=== PATIENT | female | born 1955 | race Caucasian/White ===

== ENCOUNTER 2022-03-06 13:55 | Inpatient (IN) | payer OTHER ==
[~2022-03-06] VITALS: Ht 152.4 cm; Wt 67.0 kg
[2022-03-06] MEDS ORDERED: SUCR1SUS5 PO (15:39)
[2022-03-06] MEDS ORDERED: PANT40T PO (15:39)
[2022-03-06] MEDS ORDERED: PROM25TA5 PO (15:39)
[2022-03-06] MEDS ORDERED: ONDA-144 PO (15:39)
[2022-03-06] MEDS ORDERED: NITROGLYCERIN 0.4 MG SL TAB SL PRN (15:45)
[2022-03-06] MEDS ORDERED: MORPHINE SULFATE INJ 2 MG/ml SYRG IV PRN (15:45)
[2022-03-06] MEDS: ONDANSETRON HCL 4 MG/2 ML VIAL IV PRN ×2 (15:59→20:54)
[2022-03-06] MEDS ORDERED: ASPirin 81 mg TAB PO ONE (16:00)
[2022-03-06] MEDS ORDERED: ENOXAPARIN SOD 100 MG/1 ML SYRINGE SC ONE (16:00)
[2022-03-06] MEDS ORDERED: ATORVASTATIN 20 MG TAB PO ONE (16:15)
[2022-03-06 16:41] LABS: INR 1.13 (0.9-1.15)
[2022-03-06 16:42] VITALS: BP 162/87
[2022-03-06] MEDS: SODIUM CHLORIDE 0.9% 1,000 ML IV SCH ×2 (16:45→20:28)
[2022-03-06 16:58] LABS: Total Protein 7.2 g/dL (6.4-8.2)
[2022-03-06] MEDS ORDERED: hydrALAZINE HCL 20 MG/ML VL IV PRN (17:00)
[2022-03-06] MEDS ORDERED: cefTRIAXone 1GM/50ML D5W 50 ML IV ONE (17:00)
[2022-03-06 17:01] LABS: Albumin 4.2 g/dL (3.4-5.0); BUN/Creatinine Ratio 10.9; Bilirubin, Total 1.5 mg/dL (0.2-1.0); Calcium 9.5 mg/dL (8.5-10.1); Magnesium 1.5 mg/dL (1.6-2.6); Potassium 3.3 mmol/L (3.5-5.1)
[2022-03-06] MEDS ORDERED: CLOPIDOGREL 300 MG TAB PO ONE (17:15)
[2022-03-06] MEDS ORDERED: HEPARIN 1,000 UNITS/ml 1ML VIAL IV ONE (17:15)
[2022-03-06] MEDS ORDERED: HEPARIN SODIUM (PORCINE) 5000 UNITS/ML 1ML VIAL ONE (17:26)
[2022-03-06] MEDS ORDERED: CLOPIDOGREL BISULFATE 75 MG TAB ONE (17:37)
[2022-03-06] MEDS ORDERED: LIDOCAINE 2%HCL (LOCAL ANESTH.) INJ 20ML MDV ONE (17:45)
[2022-03-06] MEDS ORDERED: HEPARIN IN NS 1000Units/500mL 1,500 ML ONE (17:45)
[2022-03-06] MEDS ORDERED: IOHEXOL 350 MG/ML 100ML IJ ONE (17:45)
[2022-03-06] MEDS ORDERED: IODIXANOL 320MG/ML 100ML BTL IV ONE (17:45)
[2022-03-06] MEDS ORDERED: ANGIOMAX 250 MG VIAL IV ONE (18:02)
[2022-03-06] MEDS ORDERED: SODIUM CHL 0.9% 0 ML ONE (18:03)
[2022-03-06] MEDS ORDERED: VERAPAMIL 2.5MG/ML INJ 2ML VIAL IV ONE (18:03)
[2022-03-06] MEDS ORDERED: fentaNYL CITRATE 100 MCG/2 ML VL ONE (18:03)
[2022-03-06] MEDS ORDERED: MIDAZOLAM HCL 2MG/2ML 2ml VIAL (1mg/ml) ONE (18:03)
[2022-03-06 18:07] LABS: Basophils # (auto) 0 10 ^3/uL (0-0.2); Basophils % (auto) 0.3 % (0.0-2.0); Eosinophils # (auto) 0 10 ^3/uL (0-0.8); Hemoglobin 14.1 g/dL (12.2-16.2); Lymphocytes # (auto) 1.1 10 ^3/uL (0.4-5.4); Mean Corpuscular Hemoglobin 30.2 pg (28.0-32.0); Mean Corpuscular Hgb Conc. 32.9 g/dL (32.0-36.0); Mean Corpuscular Volume 91.9 fL (80.0-100.0); Monocytes # (auto) 0.5 10 ^3/uL (0-1.3); Monocytes % (auto) 3.7 % (0.0-12.0); Neutrophils # (auto) 11.5 10 ^3/uL (1.6-8.6); Red Blood Cells 4.68 10^6/uL (4.0-5.20); Red Cell Distribution Width 13.8 % (11.8-14.3); White Blood Cell 13.1 10^3/uL (4.4-10.8)
[2022-03-06] MEDS: POTASSIUM CHL 20MEQ/100ML 100 ML IV SCH (20:54)
[2022-03-06] MEDS: SACUBITRIL-VALSARTAN 24mg/26mg TAB PO SCH (21:03)
[2022-03-06] MEDS: ATORVASTATIN 20 MG TAB PO SCH (21:04)
[2022-03-06] MEDS: CARVEDILOL 3.125 MG TAB PO SCH (21:04)
[2022-03-06 21:47] VITALS: BP 128/72
[2022-03-07] MEDS: ONDANSETRON HCL 4 MG/2 ML VIAL IV PRN ×3 (00:27→14:05)
[2022-03-07] MEDS: POTASSIUM CHL 20MEQ/100ML 100 ML IV SCH (00:27)
[2022-03-07] MEDS: METOCLOPRAMIDE HCL 5MG/ml INJ 2ml VIAL IV PRN ×3 (01:26→19:50)
[2022-03-07 04:44] VITALS: BP 129/85
[2022-03-07 04:53] LABS: Urine Bacteria NONE SEEN /hpf (None Seen); Urine Blood 1+ /uL (Negative); Urine Mucus FEW (None Seen); Urine Specific Gravity 1.025 (1.001-1.035); Urine WBC 1 /hpf (0 - 5)
[2022-03-07 05:03] LABS: Alcohol, Urine < 3.0 mg/dL (0-10); Amphetamine Screen, Urine NEGATIVE (NEGATIVE); Barbiturate Scree,Urine NEGATIVE (NEGATIVE); Benzodiazephine Screen, Urine POSITIVE (NEGATIVE); Cannabinoid Screen, Urine POSITIVE (NEGATIVE); Cocaine Screen, Urine NEGATIVE (NEGATIVE); Opiate Scree,Urine NEGATIVE (NEGATIVE); Phencyclidine Screen, Urine NEGATIVE (NEGATIVE)
[2022-03-07] MEDS: SODIUM CHLORIDE 0.9% 1,000 ML IV SCH (05:46)
[2022-03-07 08:15] LABS: Basophils # (auto) 0.1 10 ^3/uL (0-0.2); Basophils % (auto) 0.3 % (0.0-2.0); Eosinophils # (auto) 0 10 ^3/uL (0-0.8); Hematocrit 44.5 % (36.0-46.0); Hemoglobin 14.7 g/dL (12.2-16.2); Lymphocytes # (auto) 1.7 10 ^3/uL (0.4-5.4); Lymphocytes % (auto) 8.5 % (10.0-50.0); Mean Corpuscular Hemoglobin 29.6 pg (28.0-32.0); Mean Corpuscular Volume 89.7 fL (80.0-100.0); Monocytes # (auto) 0.6 10 ^3/uL (0-1.3); Monocytes % (auto) 3.2 % (0.0-12.0); Neutrophils # (auto) 17.8 10 ^3/uL (1.6-8.6); Nucleated Red Blood Cells % 0.1 %; Red Blood Cells 4.96 10^6/uL (4.0-5.20); White Blood Cell 20.2 10^3/uL (4.4-10.8)
[2022-03-07 08:42] LABS: BUN/Creatinine Ratio 20.5; Calcium 8.7 mg/dL (8.5-10.1); Potassium 3.8 mmol/L (3.5-5.1)
[2022-03-07 09:00] VITALS: BP 145/71
[2022-03-07] MEDS: CARVEDILOL 3.125 MG TAB PO SCH ×2 (09:01→22:07)
[2022-03-07] MEDS: SACUBITRIL-VALSARTAN 24mg/26mg TAB PO SCH ×2 (09:01→22:07)
[2022-03-07] MEDS: cefTRIAXone 1GM/50ML D5W 50 ML IV SCH ×2 (09:05→10:55)
[2022-03-07] MEDS ORDERED: SODIUM CHLORIDE 0.9% 1,000 ML IV SCH (09:45)
[2022-03-07] MEDS ORDERED: PANTOPRAZOLE 40 MG/10 ML VIAL INJ IV SCH (10:00)
[2022-03-07 12:58] VITALS: BP 121/81
[2022-03-07] MEDS ORDERED: FUROSEMIDE 40 MG/4 ML VIAL IV ONE (13:45)
[2022-03-07] MEDS ORDERED: MAGNESIUM SULFATE 1GM/100ML 100 ML IV ONE (13:45)
[2022-03-07 14:22] LABS: Basophils # (auto) 0.1 10 ^3/uL (0-0.2); Basophils % (auto) 0.3 % (0.0-2.0); Eosinophils # (auto) 0 10 ^3/uL (0-0.8); Nucleated Red Blood Cells % 0.1 %
[2022-03-07 14:24] LABS: Hematocrit 45.4 % (36.0-46.0); Hemoglobin 15.1 g/dL (12.2-16.2); Lymphocytes % (auto) 9.5 % (10.0-50.0); Mean Corpuscular Hemoglobin 30.5 pg (28.0-32.0); Mean Corpuscular Hgb Conc. 33.2 g/dL (32.0-36.0); Mean Corpuscular Volume 91.9 fL (80.0-100.0); Monocytes # (auto) 0.9 10 ^3/uL (0-1.3); Monocytes % (auto) 4.1 % (0.0-12.0); Neutrophils # (auto) 18.5 10 ^3/uL (1.6-8.6); Neutrophils % (auto) 86.1 % (37.0-80.0); Red Blood Cells 4.94 10^6/uL (4.0-5.20); Red Cell Distribution Width 13.8 % (11.8-14.3); White Blood Cell 21.5 10^3/uL (4.4-10.8)
[2022-03-07 14:53] LABS: Albumin 3.3 g/dL (3.4-5.0); Calcium 8.7 mg/dL (8.5-10.1); Magnesium 1.8 mg/dL (1.6-2.6); Potassium 3.3 mmol/L (3.5-5.1)
[2022-03-07 14:56] LABS: BUN/Creatinine Ratio 15.4; Total Protein 6.8 g/dL (6.4-8.2)
[2022-03-07 17:00] VITALS: BP 111/69
[2022-03-07] MEDS: FUROSEMIDE 40 MG/4 ML VIAL IV SCH (17:45)
[2022-03-07] MEDS: SUCRALFATE 1 GM TAB PO SCH ×2 (17:45→22:06)
[2022-03-07 22:00] VITALS: BP 104/53
[2022-03-07] MEDS ORDERED: ATORVASTATIN 20 MG TAB PO SCH (22:00)
[2022-03-07] MEDS: ATORVASTATIN 20 MG TAB PO SCH (22:06)
[2022-03-07] MEDS: PANTOPRAZOLE 40 MG/10 ML VIAL INJ IV SCH (22:06)
[2022-03-07] MEDS: ALPRAZolam 0.5 MG TAB PO PRN (22:07)
[2022-03-08 05:00] VITALS: BP 126/77
[2022-03-08] MEDS: FUROSEMIDE 40 MG/4 ML VIAL IV SCH ×2 (06:10→18:02)
[2022-03-08] MEDS: SUCRALFATE 1 GM TAB PO SCH ×4 (06:11→21:32)
[2022-03-08 06:19] LABS: Basophils # (auto) 0.1 10 ^3/uL (0-0.2); Basophils % (auto) 0.5 % (0.0-2.0); Eosinophils # (auto) 0 10 ^3/uL (0-0.8); Eosinophils % (auto) 0.1 % (0.0-7.0); Hematocrit 42.3 % (36.0-46.0); Hemoglobin 14.4 g/dL (12.2-16.2); Lymphocytes # (auto) 2.1 10 ^3/uL (0.4-5.4); Lymphocytes % (auto) 12.9 % (10.0-50.0); Mean Corpuscular Hemoglobin 30.3 pg (28.0-32.0); Mean Corpuscular Hgb Conc. 34.1 g/dL (32.0-36.0); Mean Corpuscular Volume 88.9 fL (80.0-100.0); Monocytes # (auto) 0.9 10 ^3/uL (0-1.3); Monocytes % (auto) 5.3 % (0.0-12.0); Neutrophils # (auto) 13.5 10 ^3/uL (1.6-8.6); Neutrophils % (auto) 81.2 % (37.0-80.0); Red Blood Cells 4.75 10^6/uL (4.0-5.20); Red Cell Distribution Width 13.7 % (11.8-14.3); White Blood Cell 16.6 10^3/uL (4.4-10.8)
[2022-03-08 06:35] LABS: BUN/Creatinine Ratio 19.1; Calcium 8.4 mg/dL (8.5-10.1)
[2022-03-08 06:39] LABS: Potassium 2.8 mmol/L (3.5-5.1)
[2022-03-08 09:00] VITALS: BP 95/40
[2022-03-08] MEDS ORDERED: POTASSIUM EFFERVESENT TAB 25 MEQ PO ONE (09:15)
[2022-03-08] MEDS: SACUBITRIL-VALSARTAN 24mg/26mg TAB PO SCH ×2 (10:00→21:32)
[2022-03-08] MEDS: CARVEDILOL 3.125 MG TAB PO SCH ×2 (10:00→21:32)
[2022-03-08] MEDS: DAPAGLIFLOZIN 5 MG TAB PO SCH (10:35)
[2022-03-08] MEDS: PANTOPRAZOLE 40 MG/10 ML VIAL INJ IV SCH ×2 (10:36→21:31)
[2022-03-08] MEDS: cefTRIAXone 1GM/50ML D5W 50 ML IV SCH (10:36)
[2022-03-08] MEDS ORDERED: POTASSIUM CHL 20 Meq TABLET PO ONE (10:45)
[2022-03-08 12:34] VITALS: BP 124/66
[2022-03-08 14:16] LABS: Magnesium 1.8 mg/dL (1.6-2.6); Potassium 3.3 mmol/L (3.5-5.1)
[2022-03-08 17:00] VITALS: BP 125/71
[2022-03-08] MEDS: ALPRAZolam 0.5 MG TAB PO PRN (21:33)
[2022-03-08] MEDS: ATORVASTATIN 20 MG TAB PO SCH (21:33)
[2022-03-08 22:00] VITALS: BP 123/80
[2022-03-08] MEDS: ONDANSETRON HCL 4 MG/2 ML VIAL IV PRN (22:16)
[2022-03-09 05:00] VITALS: BP 100/55
[2022-03-09 05:52] LABS: Basophils # (auto) 0 10 ^3/uL (0-0.2); Basophils % (auto) 0.2 % (0.0-2.0); Eosinophils # (auto) 0 10 ^3/uL (0-0.8); Eosinophils % (auto) 0.2 % (0.0-7.0); Hematocrit 41.7 % (36.0-46.0); Hemoglobin 14.1 g/dL (12.2-16.2); Lymphocytes # (auto) 2.1 10 ^3/uL (0.4-5.4); Lymphocytes % (auto) 17.5 % (10.0-50.0); Mean Corpuscular Hemoglobin 30.5 pg (28.0-32.0); Mean Corpuscular Hgb Conc. 33.8 g/dL (32.0-36.0); Monocytes # (auto) 0.8 10 ^3/uL (0-1.3); Monocytes % (auto) 6.8 % (0.0-12.0); Neutrophils # (auto) 9.1 10 ^3/uL (1.6-8.6); Neutrophils % (auto) 75.3 % (37.0-80.0); Red Blood Cells 4.64 10^6/uL (4.0-5.20); Red Cell Distribution Width 13.5 % (11.8-14.3); White Blood Cell 12.1 10^3/uL (4.4-10.8)
[2022-03-09] MEDS: FUROSEMIDE 40 MG/4 ML VIAL IV SCH (05:53)
[2022-03-09] MEDS: ONDANSETRON HCL 4 MG/2 ML VIAL IV PRN ×2 (05:53→09:50)
[2022-03-09] MEDS: SUCRALFATE 1 GM TAB PO SCH ×2 (05:54→12:55)
[2022-03-09 06:05] LABS: BUN/Creatinine Ratio 26.1; Calcium 8.7 mg/dL (8.5-10.1)
[2022-03-09 07:02] LABS: Potassium 2.9 mmol/L (3.5-5.1)
[2022-03-09] MEDS ORDERED: POTASSIUM EFFERVESENT TAB 25 MEQ PO ONE (07:45)
[2022-03-09] MEDS ORDERED: POTASSIUM CHL 20 Meq TABLET PO ONE (08:30)
[2022-03-09] MEDS ORDERED: MAGNESIUM OXIDE 400 MG TAB PO ONE (08:30)
[2022-03-09 08:55] VITALS: BP 113/69
[2022-03-09] MEDS: DAPAGLIFLOZIN 5 MG TAB PO SCH (09:57)
[2022-03-09] MEDS: SACUBITRIL-VALSARTAN 24mg/26mg TAB PO SCH (09:58)
[2022-03-09] MEDS: CARVEDILOL 3.125 MG TAB PO SCH (10:00)
[2022-03-09] MEDS ORDERED: SPIRONOLACTONE 25 MG TAB PO SCH (10:00)
[2022-03-09] MEDS: PANTOPRAZOLE 40 MG/10 ML VIAL INJ IV SCH (10:11)
[2022-03-09 13:00] VITALS: BP 119/56
[2022-03-09] MEDS ORDERED: ALBUMIN 25% 100 ML IV ONE (16:00)
[2022-03-09] MEDS ORDERED: ONDA-144 PO (16:27)
[2022-03-09] MEDS ORDERED: CAR3125T PO (16:27)
[2022-03-09] MEDS ORDERED: PANT40T PO (16:27)
[2022-03-09] MEDS ORDERED: SACU1TAB PO (16:27)
[2022-03-09 16:46] VITALS: BP 113/69
[2022-03-09 16:56] VITALS: BP 96/44
== END 2022-03-09 17:48 | disposition home or self-care (01) | DRG 280 ==
LOC: CENTRAL 13:55 → TELE-CENTR 17:24
PROVIDERS: ADMIT Hospitalist; ATTEND Internal Medicine
PROC: 4A023N7 Measurement of Cardiac Sampling and Pressure, Left Heart, Percutaneous Approach (ICD-10-PCS; principal; 2022-03-06)
PROC: B211YZZ Fluoroscopy of Multiple Coronary Arteries using Other Contrast (ICD-10-PCS; 2022-03-06)
PROC: B215YZZ Fluoroscopy of Left Heart using Other Contrast (ICD-10-PCS; 2022-03-06)
DX: I21.4 Non-ST elevation (NSTEMI) myocardial infarction (principal); I50.23 Acute on chronic systolic (congestive) heart failure; D72.829 Elevated white blood cell count, unspecified; E78.5 Hyperlipidemia, unspecified; E83.42 Hypomagnesemia; E87.6 Hypokalemia; F10.10 Alcohol abuse, uncomplicated; I11.0 Hypertensive heart disease with heart failure; I27.20 Pulmonary hypertension, unspecified; K21.9 Gastro-esophageal reflux disease without esophagitis; K57.30 Diverticulosis of large intestine without perforation or abscess without bleeding; Z82.49 Family history of ischemic heart disease and other diseases of the circulatory system; Z96.641 Presence of right artificial hip joint; R11.15 Cyclical vomiting syndrome unrelated to migraine; F12.90 Cannabis use, unspecified, uncomplicated; Z88.6 Allergy status to analgesic agent
CPT/HCPCS: 36415; 71045; 80048; 80053; 80061; 80307; 80320; 81001; 82306; 83036; 83735; 83880; 84132; 84443; 84484; 85025; 85610; 86850; 86900; 86901; 87040; 87086; 93306; 96361; 96374; 99152; C9113; G0378; J0696; J2250; J2405; J3480; Q9967

== ENCOUNTER 2022-04-06 08:25 | Inpatient (IN) | payer OTHER ==
[~2022-04-06] VITALS: Ht 149.9 cm; Wt 65.0 kg
[~2022-04-06 08:25] MED LIST: CAR3125T PO; ONDA-144 PO; PANT40T PO; SACU1TAB PO; SUCR1SUS5 PO
[2022-04-06] MEDS ORDERED: ONDANSETRON HCL 4 MG/2 ML VIAL IV ONE (09:15)
[2022-04-06 10:17] LABS: Basophils # (auto) 0.1 10 ^3/uL (0-0.2); Basophils % (auto) 1.1 % (0.0-2.0); Eosinophils # (auto) 0 10 ^3/uL (0-0.8); Eosinophils % (auto) 0.1 % (0.0-7.0); Hemoglobin 14.7 g/dL (12.2-16.2); Lymphocytes # (auto) 1.7 10 ^3/uL (0.4-5.4); Lymphocytes % (auto) 13.9 % (10.0-50.0); Mean Corpuscular Hemoglobin 30.7 pg (28.0-32.0); Mean Corpuscular Hgb Conc. 33.4 g/dL (32.0-36.0); Mean Corpuscular Volume 91.9 fL (80.0-100.0); Monocytes # (auto) 0.3 10 ^3/uL (0-1.3); Monocytes % (auto) 2.6 % (0.0-12.0); Neutrophils # (auto) 9.9 10 ^3/uL (1.6-8.6); Neutrophils % (auto) 82.3 % (37.0-80.0); Red Blood Cells 4.79 10^6/uL (4.0-5.20); Red Cell Distribution Width 13.9 % (11.8-14.3)
[2022-04-06 10:47] LABS: Albumin 4.3 g/dL (3.4-5.0); Bilirubin, Total 0.6 mg/dL (0.2-1.0); Calcium 10.1 mg/dL (8.5-10.1); Magnesium 2.1 mg/dL (1.6-2.6); Potassium 3.7 mmol/L (3.5-5.1); Total Protein 7.5 g/dL (6.4-8.2)
[2022-04-06] MEDS ORDERED: DOCUSATE SOD 100 MG CAP PO PRN (15:15)
[2022-04-06] MEDS ORDERED: ACETAMINOPHEN 325 MG TAB PO PRN (15:15)
[2022-04-06] MEDS ORDERED: ASPirin 81 mg TAB PO ONE (16:00)
[2022-04-06] MEDS ORDERED: hydrALAZINE HCL 20 MG/ML VL IV PRN (16:00)
[2022-04-06] MEDS: ONDANSETRON HCL 4 MG/2 ML VIAL IV PRN (19:40)
[2022-04-06] MEDS ORDERED: METOCLOPRAMIDE HCL 5MG/ml INJ 2ml VIAL IV ONE (20:30)
[2022-04-06] MEDS ORDERED: SUCRALFATE 1 GM/10 ML ORAL SUSP PO ONE (20:30)
[2022-04-06] MEDS ORDERED: PANTOPRAZOLE 40 MG/10 ML VIAL INJ IV ONE (20:30)
[2022-04-06] MEDS ORDERED: NITROGLYCERIN 0.4 MG SL TAB SL PRN (21:45)
[2022-04-06] MEDS ORDERED: MORPHINE SULFATE INJ 2 MG/ml SYRG IV PRN (21:45)
[2022-04-07] MEDS: SODIUM CHLOR 0.9% PF (SALINE LOCK) 10ML VIAL/SYR IV SCH ×4 (00:33→22:00)
[2022-04-07] MEDS: CARVEDILOL 3.125 MG TAB PO SCH ×3 (00:47→22:44)
[2022-04-07] MEDS: SACUBITRIL-VALSARTAN 24mg/26mg TAB PO SCH ×3 (00:48→22:42)
[2022-04-07] MEDS: ONDANSETRON HCL 4 MG/2 ML VIAL IV PRN (05:22)
[2022-04-07 06:21] LABS: Basophils # (auto) 0.1 10 ^3/uL (0-0.2); Basophils % (auto) 0.6 % (0.0-2.0); Eosinophils # (auto) 0 10 ^3/uL (0-0.8); Eosinophils % (auto) 0.1 % (0.0-7.0); Hematocrit 42.1 % (36.0-46.0); Hemoglobin 14.1 g/dL (12.2-16.2); Lymphocytes # (auto) 1.7 10 ^3/uL (0.4-5.4); Lymphocytes % (auto) 13.7 % (10.0-50.0); Mean Corpuscular Hemoglobin 30.5 pg (28.0-32.0); Mean Corpuscular Hgb Conc. 33.4 g/dL (32.0-36.0); Mean Corpuscular Volume 91.2 fL (80.0-100.0); Monocytes # (auto) 0.8 10 ^3/uL (0-1.3); Neutrophils % (auto) 79.6 % (37.0-80.0); Nucleated Red Blood Cells % 0.1 %; Red Blood Cells 4.62 10^6/uL (4.0-5.20); Red Cell Distribution Width 13.8 % (11.8-14.3); White Blood Cell 12.6 10^3/uL (4.4-10.8)
[2022-04-07 06:42] LABS: BUN/Creatinine Ratio 22.8; Bilirubin, Total 0.9 mg/dL (0.2-1.0); Calcium 9.8 mg/dL (8.5-10.1); Potassium 3.1 mmol/L (3.5-5.1); Total Protein 7.8 g/dL (6.4-8.2)
[2022-04-07] MEDS ORDERED: POTASSIUM CHL 20 Meq TABLET PO ONE (09:30)
[2022-04-07] MEDS: ENOXAPARIN SOD 40 MG/0.4 ML SYRINGE SC SCH (09:35)
[2022-04-07] MEDS ORDERED: ASPirin 81 mg TAB PO SCH (10:00)
[2022-04-07] MEDS ORDERED: DAPAGLIFLOZIN 5 MG TAB PO SCH (10:00)
[2022-04-07] MEDS ORDERED: IPRATROPIUM BROM 0.5 MG/2.5ML INH SOL NEB PRN (11:15)
[2022-04-07] MEDS ORDERED: ALBUTEROL SULF 2.5 MG/0.5ML(0.5%) NEB SOLN NEB PRN (11:15)
[2022-04-07] MEDS: EMPAGLIFLOZIN 10 MG TAB PO SCH (16:31)
[2022-04-07] MEDS ORDERED: IOHEXOL 350 MG/ML 100ML IJ ONE (16:38)
[2022-04-08] MEDS: SODIUM CHLOR 0.9% PF (SALINE LOCK) 10ML VIAL/SYR IV SCH ×2 (06:17→14:31)
[2022-04-08 09:00] VITALS: BP 140/66
[2022-04-08] MEDS ORDERED: EMPAGLIFLOZIN 10 MG TAB PO SCH (10:00)
[2022-04-08] MEDS: EMPAGLIFLOZIN 10 MG TAB PO SCH (10:26)
[2022-04-08] MEDS: SACUBITRIL-VALSARTAN 24mg/26mg TAB PO SCH (10:26)
[2022-04-08] MEDS: ENOXAPARIN SOD 40 MG/0.4 ML SYRINGE SC SCH (10:26)
[2022-04-08] MEDS: CARVEDILOL 3.125 MG TAB PO SCH (10:26)
[2022-04-08 13:00] VITALS: BP 123/50
[2022-04-08] MEDS ORDERED: SACU1TAB PO (15:47)
[2022-04-08] MEDS ORDERED: PANT40T PO (15:47)
[2022-04-08] MEDS ORDERED: CAR3125T PO (15:47)
[2022-04-08] MEDS ORDERED: SUCR1SUS5 PO (15:47)
[2022-04-08 16:09] VITALS: BP 120/56
== END 2022-04-08 17:00 | disposition home or self-care (01) | DRG 281 ==
LOC: ER 08:25 → TELE 21:34 → TELE-WESTW 04-08 07:55
PROVIDERS: ADMIT Nurse Practitioner; ATTEND Internal Medicine
DX: I21.4 Non-ST elevation (NSTEMI) myocardial infarction (principal); I50.22 Chronic systolic (congestive) heart failure; R73.9 Hyperglycemia, unspecified; K22.70 Barrett's esophagus without dysplasia; I27.20 Pulmonary hypertension, unspecified; K21.9 Gastro-esophageal reflux disease without esophagitis; K59.00 Constipation, unspecified; Z96.641 Presence of right artificial hip joint; Z20.822 Contact with and (suspected) exposure to COVID-19; I11.0 Hypertensive heart disease with heart failure; F10.10 Alcohol abuse, uncomplicated; I25.2 Old myocardial infarction
CPT/HCPCS: 36415; 71045; 71275; 80053; 83735; 83880; 84484; 85025; 85379; 87040; 87426; 93970; C9113; G0378; J2405

== ENCOUNTER 2022-05-18 08:00 | Outpatient (CLI) | payer OTHER | END 2022-05-18 13:49 | disposition home or self-care (01) | LOC: XYW 08:00 | PROVIDERS: ATTEND Internal Medicine | DX: I51.81 Takotsubo syndrome (principal); I51.7 Cardiomegaly | CPT/HCPCS: 93306 ==

== ENCOUNTER 2022-08-16 06:03 | Inpatient (IN) | payer OTHER ==
[2022-08-13 10:33] LABS: Basophils # (auto) 0.1 10 ^3/uL (0-0.2); Basophils % (auto) 1.2 % (0.0-2.0); Eosinophils # (auto) 0.1 10 ^3/uL (0-0.8); Eosinophils % (auto) 1.8 % (0.0-7.0); Hematocrit 40.4 % (36.0-46.0); Hemoglobin 13.6 g/dL (12.2-16.2); Lymphocytes # (auto) 2.1 10 ^3/uL (0.4-5.4); Lymphocytes % (auto) 35.8 % (10.0-50.0); Mean Corpuscular Hemoglobin 30.5 pg (28.0-32.0); Mean Corpuscular Hgb Conc. 33.5 g/dL (32.0-36.0); Monocytes # (auto) 0.3 10 ^3/uL (0-1.3); Monocytes % (auto) 4.5 % (0.0-12.0); Neutrophils # (auto) 3.4 10 ^3/uL (1.6-8.6); Neutrophils % (auto) 56.7 % (37.0-80.0); Nucleated Red Blood Cells % 0.1 %; Red Blood Cells 4.44 10^6/uL (4.0-5.20); Red Cell Distribution Width 14.1 % (11.8-14.3)
[2022-08-13 10:46] LABS: INR 1.05 (0.9-1.15); Partial Thromboplastin Time 29.5 sec (24.6-33.4)
[2022-08-13 10:49] LABS: Urine Bacteria NONE SEEN /hpf (None Seen); Urine Blood Negative /uL (Negative); Urine Mucus FEW (None Seen); Urine Specific Gravity 1.019 (1.001-1.035); Urine WBC 5 /hpf (0 - 5)
[2022-08-13 11:38] LABS: Potassium 4.4 mmol/L (3.5-5.1)
[2022-08-13 11:46] LABS: Albumin 3.9 g/dL (3.4-5.0); Bilirubin, Total 0.4 mg/dL (0.2-1.0); Calcium 9.4 mg/dL (8.5-10.1); Total Protein 7.6 g/dL (6.4-8.2)
[~2022-08-16] VITALS: Ht 149.9 cm; Wt 71.9 kg
[~2022-08-16 06:03] MED LIST changes: +ATOR20TA PO; -CAR3125T PO; -ONDA-144 PO; -PANT40T PO; -SUCR1SUS5 PO
[2022-08-16] MEDS ORDERED: ceFAZolin 1GM/50ML 100 ML IV ONE (06:50)
[2022-08-16] MEDS ORDERED: ACETAMINOPHEN IV 100 ML IV ONE (06:51)
[2022-08-16] MEDS ORDERED: BUPIVACAINE 0.25% INJ 50ML VIAL ONE ×2 (06:55→09:48)
[2022-08-16] MEDS ORDERED: TRANEXAMIC ACID 20 ML ONE ×2 (06:55→09:48)
[2022-08-16] MEDS ORDERED: VANCOMYCIN HCL 1000 MG VL ONE ×2 (06:59→09:50)
[2022-08-16] MEDS ORDERED: PREGABALIN CAPSULE 75 MG CAP PO ONE (07:00)
[2022-08-16] MEDS ORDERED: KETOROLAC TROMETH 30 MG/ML 1ML VIAL ONE (07:00)
[2022-08-16] MEDS ORDERED: CELECOXIB 100 MG CAP PO ONE (07:00)
[2022-08-16] MEDS ORDERED: ACETAMINOPHEN IV 1000 MG/100ML (10MG/ML) IV ONE (07:00)
[2022-08-16] MEDS ORDERED: fentaNYL CITRATE 100 MCG/2 ML VL ONE ×2 (07:31→08:56)
[2022-08-16] MEDS ORDERED: MIDAZOLAM HCL 2MG/2ML 2ml VIAL (1mg/ml) ONE (07:31)
[2022-08-16] MEDS ORDERED: MORPHINE SULF PF 5 MG/10 ML VIAL ONE (07:32)
[2022-08-16] MEDS ORDERED: TETRACAINE 1% INJ 2 ML VIAL IJ ONE (07:33)
[2022-08-16] MEDS ORDERED: PROPOFOL 10 MG/ML 20 ML IV ONE ×2 (07:57→09:45)
[2022-08-16] MEDS ORDERED: NALOXONE HCL 0.4 MG/ML VIAL IV PRN (10:00)
[2022-08-16] MEDS ORDERED: DexAMETHasone SOD PHOS 10MG/1ML VIAL INJ IV PRN (10:00)
[2022-08-16] MEDS ORDERED: NALBUPHINE HCL 10 MG/1ml INJECTION SUBCUT ONE (10:00)
[2022-08-16] MEDS ORDERED: KETOROLAC TROMETH 30 MG/ML 1ML VIAL IV PRN ×2 (10:00→15:45)
[2022-08-16] MEDS ORDERED: diphenhdrAMINE HCL 50 MG/1 ML VL IV PRN (10:00)
[2022-08-16] MEDS ORDERED: HYDROmorphone HCL 2 MG/ML VL/or syr IV PRN ×2 (10:00→10:30)
[2022-08-16] MEDS ORDERED: LACTATED RINGER'S 1,000 ML IV SCH (10:30)
[2022-08-16] MEDS ORDERED: MORPHINE SULFATE INJ 2 MG/ml SYRG IV PRN (10:30)
[2022-08-16] MEDS ORDERED: NITROGLYCERIN 0.4 MG SL TAB SL PRN (10:30)
[2022-08-16] MEDS ORDERED: ONDANSETRON HCL 4 MG/2 ML VIAL IV PRN (10:30)
[2022-08-16] MEDS: ONDANSETRON HCL 4 MG/2 ML VIAL IV PRN ×2 (11:13→22:28)
[2022-08-16] MEDS ORDERED: ePHEDrine SULFATE 50 MG/ML AMP ONE (12:11)
[2022-08-16 12:53] VITALS: BP 105/51
[2022-08-16] MEDS: ceFAZolin 1GM/50ML 50 ML IV SCH ×3 (13:04→22:29)
[2022-08-16] MEDS ORDERED: ONDANSETRON HCL 4 MG/2 ML VIAL ONE (13:27)
[2022-08-16] MEDS: LACTATED RINGER'S 1,000 ML IV SCH (16:52)
[2022-08-16] MEDS: SODIUM CHLOR 0.9% PF (SALINE LOCK) 10ML VIAL/SYR IV SCH ×2 (16:53→22:29)
[2022-08-16 17:36] VITALS: BP 99/31
[2022-08-16 22:00] VITALS: BP 126/56
[2022-08-16] MEDS ORDERED: SACUBITRIL-VALSARTAN 24mg/26mg TAB PO SCH ×2 (22:00)
[2022-08-16 22:01] VITALS: BP 129/61
[2022-08-16] MEDS: DOCUSATE SOD 100 MG CAP PO SCH (22:29)
[2022-08-16 23:01] VITALS: BP 126/56
[2022-08-17] VITALS (15 sets, daily range): BP systolic 99–118; BP diastolic 41–68
[2022-08-17] MEDS: LACTATED RINGER'S 1,000 ML IV SCH (05:05)
[2022-08-17] MEDS: SODIUM CHLOR 0.9% PF (SALINE LOCK) 10ML VIAL/SYR IV SCH ×3 (05:45→23:22)
[2022-08-17 06:19] LABS: Potassium 3.7 mmol/L (3.5-5.1)
[2022-08-17 06:20] LABS: Basophils # (auto) 0 10 ^3/uL (0-0.2); Basophils % (auto) 0.3 % (0.0-2.0); Eosinophils # (auto) 0 10 ^3/uL (0-0.8); Eosinophils % (auto) 0.1 % (0.0-7.0); Hematocrit 33.2 % (36.0-46.0); Hemoglobin 11.3 g/dL (12.2-16.2); Lymphocytes # (auto) 0.9 10 ^3/uL (0.4-5.4); Lymphocytes % (auto) 13.3 % (10.0-50.0); Mean Corpuscular Hemoglobin 30.7 pg (28.0-32.0); Mean Corpuscular Hgb Conc. 33.9 g/dL (32.0-36.0); Mean Corpuscular Volume 90.7 fL (80.0-100.0); Monocytes # (auto) 0.4 10 ^3/uL (0-1.3); Monocytes % (auto) 6.2 % (0.0-12.0); Neutrophils # (auto) 5.4 10 ^3/uL (1.6-8.6); Neutrophils % (auto) 80.1 % (37.0-80.0); Red Blood Cells 3.67 10^6/uL (4.0-5.20); Red Cell Distribution Width 13.7 % (11.8-14.3); White Blood Cell 6.7 10^3/uL (4.4-10.8)
[2022-08-17 06:25] LABS: Albumin 3.1 g/dL (3.4-5.0); BUN/Creatinine Ratio 26.2 (10.0-20.0); Bilirubin, Total 0.7 mg/dL (0.2-1.0); Calcium 8.6 mg/dL (8.5-10.1)
[2022-08-17] MEDS: HYDROmorphone HCL 2 MG/ML VL/or syr IV PRN ×2 (06:47→17:30)
[2022-08-17] MEDS: ENOXAPARIN SOD 40 MG/0.4 ML SYRINGE SC SCH (09:21)
[2022-08-17] MEDS: HYDROcodone-ACET 5/325MG TAB PO PRN ×3 (09:22→20:14)
[2022-08-17] MEDS: DOCUSATE SOD 100 MG CAP PO SCH ×2 (09:22→21:50)
[2022-08-17] MEDS: SACUBITRIL-VALSARTAN 24mg/26mg TAB PO SCH ×2 (09:27→21:49)
[2022-08-17] MEDS ORDERED: ATORVASTATIN 20 MG TAB PO SCH (10:00)
[2022-08-17 13:28] LABS: Urine Bacteria NONE SEEN /hpf (None Seen); Urine Blood Negative /uL (Negative); Urine Mucus FEW (None Seen); Urine WBC 5 /hpf (0 - 5)
[2022-08-18] MEDS: HYDROmorphone HCL 2 MG/ML VL/or syr IV PRN (01:38)
[2022-08-18] MEDS: HYDROcodone-ACET 5/325MG TAB PO PRN (04:25)
[2022-08-18 05:00] VITALS: BP 116/40
[2022-08-18] MEDS: SODIUM CHLOR 0.9% PF (SALINE LOCK) 10ML VIAL/SYR IV SCH (06:00)
[2022-08-18 06:36] LABS: Basophils # (auto) 0 10 ^3/uL (0-0.2); Basophils % (auto) 0.5 % (0.0-2.0); Eosinophils # (auto) 0.2 10 ^3/uL (0-0.8); Eosinophils % (auto) 3.3 % (0.0-7.0); Hematocrit 26.7 % (36.0-46.0); Hemoglobin 9.3 g/dL (12.2-16.2); Lymphocytes # (auto) 1.2 10 ^3/uL (0.4-5.4); Lymphocytes % (auto) 18.2 % (10.0-50.0); Mean Corpuscular Hgb Conc. 34.6 g/dL (32.0-36.0); Mean Corpuscular Volume 89.6 fL (80.0-100.0); Monocytes # (auto) 0.5 10 ^3/uL (0-1.3); Monocytes % (auto) 6.7 % (0.0-12.0); Neutrophils # (auto) 4.8 10 ^3/uL (1.6-8.6); Neutrophils % (auto) 71.3 % (37.0-80.0); Nucleated Red Blood Cells % 0.1 %; Red Blood Cells 2.98 10^6/uL (4.0-5.20); Red Cell Distribution Width 13.8 % (11.8-14.3); White Blood Cell 6.7 10^3/uL (4.4-10.8)
[2022-08-18 06:57] LABS: Albumin 2.8 g/dL (3.4-5.0); BUN/Creatinine Ratio 25.8 (10.0-20.0); Calcium 8.3 mg/dL (8.5-10.1); Potassium 3.8 mmol/L (3.5-5.1)
[2022-08-18 07:00] LABS: Bilirubin, Total 1.1 mg/dL (0.2-1.0); Total Protein 5.1 g/dL (6.4-8.2)
[2022-08-18 08:00] VITALS: BP_SYST 103; BP_SYST 99; BP_DIAS 43; BP_DIAS 46
[2022-08-18] MEDS: DOCUSATE SOD 100 MG CAP PO SCH (10:39)
[2022-08-18] MEDS: SACUBITRIL-VALSARTAN 24mg/26mg TAB PO SCH (10:40)
[2022-08-18] MEDS: ENOXAPARIN SOD 40 MG/0.4 ML SYRINGE SC SCH (10:41)
[2022-08-18 12:00] VITALS: BP 122/51
[2022-08-23] MEDS ORDERED: ONDA-144 PO (14:45)
[2022-08-23] MEDS ORDERED: PANT40TA2 PO (14:45)
== END 2022-08-18 12:58 | disposition home health service (06) | DRG 470 ==
LOC: SUR 06:03 → OVERFLOW 10:31 → EAST 12:36 → TELE-EAST 19:02
PROVIDERS: ADMIT Orthopaedic Surgery Adult Reconstructive Orthopaedic Surgery; ATTEND Internal Medicine
PROC: BQ11ZZZ Fluoroscopy of Left Hip (ICD-10-PCS; 2022-08-16)
PROC: 0SRB06A Replacement of Left Hip Joint with Oxidized Zirconium on Polyethylene Synthetic Substitute, Uncemented, Open Approach (ICD-10-PCS; principal; 2022-08-16 07:35)
DX: M16.12 Unilateral primary osteoarthritis, left hip (principal); I50.42 Chronic combined systolic (congestive) and diastolic (congestive) heart failure; E78.5 Hyperlipidemia, unspecified; Z20.822 Contact with and (suspected) exposure to COVID-19; I11.0 Hypertensive heart disease with heart failure; J44.9 Chronic obstructive pulmonary disease, unspecified; K21.9 Gastro-esophageal reflux disease without esophagitis; Z96.642 Presence of left artificial hip joint; Z98.51 Tubal ligation status; Z90.49 Acquired absence of other specified parts of digestive tract; Z83.3 Family history of diabetes mellitus; Z82.49 Family history of ischemic heart disease and other diseases of the circulatory system; Z81.1 Family history of alcohol abuse and dependence; Z80.8 Family history of malignant neoplasm of other organs or systems
CPT/HCPCS: 36415; 72170; 73501; 76000; 80053; 81001; 85025; 85610; 85730; 86850; 86900; 86901; 97110; 97116; 97163; C1776; G0378; J0131; J0690; J1885; J2250; J2405; J2704; J3490

== ENCOUNTER → 2022-08-30 | Outpatient (CLI) | payer OTHER ==
[~2022-08-30] MED LIST changes: +ONDA-144 PO; +PANT40TA2 PO
[2022-08-30 15:40] LABS: Basophils # (auto) 0.1 10 ^3/uL (0-0.2); Basophils % (auto) 0.9 % (0.0-2.0); Eosinophils # (auto) 0.3 10 ^3/uL (0-0.8); Eosinophils % (auto) 3.5 % (0.0-7.0); Hematocrit 32.4 % (36.0-46.0); Lymphocytes # (auto) 2.6 10 ^3/uL (0.4-5.4); Lymphocytes % (auto) 32.8 % (10.0-50.0); Mean Corpuscular Hemoglobin 30.8 pg (28.0-32.0); Mean Corpuscular Hgb Conc. 33.9 g/dL (32.0-36.0); Mean Corpuscular Volume 90.9 fL (80.0-100.0); Monocytes # (auto) 0.5 10 ^3/uL (0-1.3); Monocytes % (auto) 5.9 % (0.0-12.0); Neutrophils # (auto) 4.6 10 ^3/uL (1.6-8.6); Neutrophils % (auto) 56.9 % (37.0-80.0); Nucleated Red Blood Cells % 0.1 %; Red Blood Cells 3.57 10^6/uL (4.0-5.20); Red Cell Distribution Width 14.7 % (11.8-14.3); White Blood Cell 8.1 10^3/uL (4.4-10.8)
[2022-08-30 16:16] LABS: Albumin 3.3 g/dL (3.4-5.0); Anion Gap 7 (5-15); Bilirubin, Direct < 0.1 mg/dL (0-0.2); Blood Urea Nitrogen 7 mg/dL (7-18); Calcium 8.8 mg/dL (8.5-10.1); Carbon Dioxide 24 mmol/L (21-32); Chloride 106 mmol/L (98-107); Glucose 100 mg/dL (74-106); Magnesium 2.7 mg/dL (1.6-2.6); Potassium 4.3 mmol/L (3.5-5.1); Sodium 137 mmol/L (136-145)
[2022-08-30 16:19] LABS: Alanine Aminotransferase 32 U/L (13-56); Alkaline Phosphatase 222 U/L (45-117); Aspartate Aminotransferase 15 U/L (15-37); BUN/Creatinine Ratio 11.5 (10.0-20.0); Bilirubin, Total 0.3 mg/dL (0.2-1.0); GFR African American 126 mL/min; GFR Non-African American 104 mL/min
== END | disposition home or self-care (01) ==
LOC: LAB 15:25
PROVIDERS: ATTEND Internal Medicine
DX: E87.6 Hypokalemia (principal)
CPT/HCPCS: 36415; 80048; 80076; 83735; 85025

== ENCOUNTER → 2022-10-27 | Outpatient (CLI) | payer OTHER ==
[2022-10-27 07:14] LABS: Basophils # (auto) 0 10 ^3/uL (0-0.2); Basophils % (auto) 0.7 % (0.0-2.0); Eosinophils # (auto) 0.2 10 ^3/uL (0-0.8); Eosinophils % (auto) 2.5 % (0.0-7.0); Hematocrit 39.9 % (36.0-46.0); Hemoglobin 13.4 g/dL (12.2-16.2); Lymphocytes # (auto) 2.1 10 ^3/uL (0.4-5.4); Lymphocytes % (auto) 33.6 % (10.0-50.0); Mean Corpuscular Hemoglobin 30.5 pg (28.0-32.0); Mean Corpuscular Hgb Conc. 33.6 g/dL (32.0-36.0); Mean Corpuscular Volume 90.7 fL (80.0-100.0); Monocytes # (auto) 0.3 10 ^3/uL (0-1.3); Monocytes % (auto) 4.7 % (0.0-12.0); Neutrophils # (auto) 3.7 10 ^3/uL (1.6-8.6); Neutrophils % (auto) 58.5 % (37.0-80.0); Nucleated Red Blood Cells % 0.1 %; White Blood Cell 6.3 10^3/uL (4.4-10.8)
[2022-10-27 07:40] LABS: Potassium 3.8 mmol/L (3.5-5.1)
[2022-10-27 07:42] LABS: Urine Bacteria NONE SEEN /hpf (None Seen); Urine Blood Negative /uL (Negative); Urine Mucus FEW (None Seen); Urine Specific Gravity 1.023 (1.001-1.035); Urine WBC 4 /hpf (0 - 5)
[2022-10-27 07:51] LABS: Bilirubin, Total 0.6 mg/dL (0.2-1.0); Calcium 9.5 mg/dL (8.5-10.1); Total Protein 7.6 g/dL (6.4-8.2)
[2022-10-27 08:26] LABS: Free T4 (Free Thyroxine) 1.11 ng/dL (0.89-1.76)
== END | disposition home or self-care (01) ==
LOC: LAB 06:17
PROVIDERS: ATTEND Internal Medicine
DX: I10 Essential (primary) hypertension (principal); K21.9 Gastro-esophageal reflux disease without esophagitis
CPT/HCPCS: 36415; 80053; 80061; 81001; 82607; 83540; 84439; 84443; 85025; 85652

== ENCOUNTER → 2022-11-29 | Outpatient (CLI) | payer OTHER ==
[2022-11-29 07:09] LABS: Basophils # (auto) 0 10 ^3/uL (0-0.2); Basophils % (auto) 0.6 % (0.0-2.0); Eosinophils # (auto) 0.2 10 ^3/uL (0-0.8); Hematocrit 41.3 % (36.0-46.0); Lymphocytes # (auto) 2.2 10 ^3/uL (0.4-5.4); Lymphocytes % (auto) 36.2 % (10.0-50.0); Mean Corpuscular Hemoglobin 29.9 pg (28.0-32.0); Mean Corpuscular Hgb Conc. 33.9 g/dL (32.0-36.0); Mean Corpuscular Volume 88.3 fL (80.0-100.0); Monocytes # (auto) 0.3 10 ^3/uL (0-1.3); Monocytes % (auto) 4.1 % (0.0-12.0); Neutrophils # (auto) 3.5 10 ^3/uL (1.6-8.6); Neutrophils % (auto) 56.1 % (37.0-80.0); Nucleated Red Blood Cells % 0.1 %; Red Blood Cells 4.68 10^6/uL (4.0-5.20); Red Cell Distribution Width 14.5 % (11.8-14.3); White Blood Cell 6.2 10^3/uL (4.4-10.8)
[2022-11-29 07:57] LABS: BUN/Creatinine Ratio 13.3 (10.0-20.0); Bilirubin, Total 0.5 mg/dL (0.2-1.0); Calcium 9.6 mg/dL (8.5-10.1); Total Protein 7.6 g/dL (6.4-8.2)
[2022-11-29 10:11] LABS: Hepatitis C Antibody Negative (Negative)
[2022-11-29 10:37] LABS: Potassium 3.8 mmol/L (3.5-5.1)
[2022-11-29 10:38] LABS: Albumin 3.9 g/dL (3.4-5.0)
== END | disposition home or self-care (01) ==
LOC: LAB 06:10
PROVIDERS: ATTEND Internal Medicine Gastroenterology
DX: K21.9 Gastro-esophageal reflux disease without esophagitis (principal); R94.5 Abnormal results of liver function studies; R93.3 Abnormal findings on diagnostic imaging of other parts of digestive tract
CPT/HCPCS: 36415; 80053; 80061; 82728; 85025; 86038; 86803; 87340

== ENCOUNTER → 2023-07-21 | Outpatient (CLI) | payer OTHER ==
[2023-07-21 07:21] LABS: Basophils # (auto) 0.1 10 ^3/uL (0-0.2); Basophils % (auto) 0.9 % (0.0-2.0); Eosinophils # (auto) 0.2 10 ^3/uL (0-0.8); Eosinophils % (auto) 3.1 % (0.0-7.0); Hematocrit 42.4 % (36.0-46.0); Hemoglobin 14.1 g/dL (12.2-16.2); Lymphocytes # (auto) 2.2 10 ^3/uL (0.4-5.4); Lymphocytes % (auto) 37.6 % (10.0-50.0); Mean Corpuscular Hemoglobin 30.3 pg (28.0-32.0); Mean Corpuscular Hgb Conc. 33.3 g/dL (32.0-36.0); Mean Corpuscular Volume 90.9 fL (80.0-100.0); Monocytes # (auto) 0.4 10 ^3/uL (0-1.3); Neutrophils # (auto) 3.1 10 ^3/uL (1.6-8.6); Neutrophils % (auto) 52.4 % (37.0-80.0); Nucleated Red Blood Cells % 0.1 %; Red Blood Cells 4.67 10^6/uL (4.0-5.20); Red Cell Distribution Width 14.6 % (11.8-14.3); White Blood Cell 5.9 10^3/uL (4.4-10.8)
[2023-07-21 07:29] LABS: Alanine Aminotransferase 20 U/L (7-40); Albumin 4.6 g/dL (3.2-4.8); Alkaline Phosphatase 110 U/L (46-116); Anion Gap 6 (5-15); Aspartate Aminotransferase 20 U/L (13-40); BUN/Creatinine Ratio 9.5 (10.0-20.0); Bilirubin, Total 0.5 mg/dL (0.2-1.0); Blood Urea Nitrogen 6 mg/dL (9-23); Calcium 9.9 mg/dL (8.5-10.1); Carbon Dioxide 27 mmol/L (20-30); Chloride 108 mmol/L (98-107); Glucose 85 mg/dL (74-106); Potassium 4.1 mmol/L (3.5-5.1); Sodium 141 mmol/L (136-145); Total Protein 6.7 g/dL (5.7-8.2)
== END | disposition home or self-care (01) ==
LOC: LAB 06:40
PROVIDERS: ATTEND Internal Medicine
DX: I10 Essential (primary) hypertension (principal); E78.00 Pure hypercholesterolemia, unspecified
CPT/HCPCS: 36415; 80053; 85025

== ENCOUNTER → 2024-01-16 | Outpatient (CLI) | payer OTHER ==
[2024-01-16 06:35] LABS: Urine Bacteria None Seen /hpf (None Seen)
[2024-01-16 06:54] LABS: Basophils # (auto) 0.1 10 ^3/uL (0-0.2); Eosinophils # (auto) 0.2 10 ^3/uL (0-0.8); Hemoglobin 14.3 g/dL (12.2-16.2); Lymphocytes # (auto) 2.5 10 ^3/uL (0.4-5.4); Mean Corpuscular Hemoglobin 31.2 pg (28.0-32.0); Mean Corpuscular Hgb Conc. 34.2 g/dL (32.0-36.0); Mean Corpuscular Volume 91.3 fL (80.0-100.0); Monocytes # (auto) 0.3 10 ^3/uL (0-1.3); Monocytes % (auto) 6.1 % (0.0-12.0); Neutrophils # (auto) 2.4 10 ^3/uL (1.6-8.6); Neutrophils % (auto) 43.9 % (37.0-80.0); Nucleated Red Blood Cells % 0.1 %; Platelet Count (auto) 222 10^3/uL (140-450); Red Cell Distribution Width 14.3 % (11.8-14.3); White Blood Cell 5.5 10^3/uL (4.4-10.8)
[2024-01-16 07:00] LABS: Urine Blood TRACE /uL (Negative); Urine Clarity Turbid (Clear); Urine Color Yellow (Yellow); Urine Mucus MANY (None Seen); Urine Protein, UAD 1+ (Negative); Urine Specific Gravity 1.026 (1.001-1.035); Urine Urobilinogen Normal (Negative); Urine WBC 45 /hpf (0 - 5)
[2024-01-16 07:47] LABS: Erythrocyte Sedimentation Rate 12 mm/hr (0-20)
[2024-01-16 07:57] LABS: Alanine Aminotransferase 26 U/L (7-40); Alkaline Phosphatase 117 U/L (46-116); Anion Gap 3 (5-15); BUN/Creatinine Ratio 15.5 (10.0-20.0); Blood Urea Nitrogen 9 mg/dL (9-23); Calcium 9.8 mg/dL (8.7-10.4); Carbon Dioxide 27 mmol/L (20-30); Chloride 110 mmol/L (98-107); Glucose 84 mg/dL (74-106); LDL Cholesterol 74 mg/dL (< 100); Potassium 3.9 mmol/L (3.5-5.1); Sodium 140 mmol/L (136-145); Triglycerides 84 mg/dL (< 150)
[2024-01-16 07:58] LABS: Albumin 4.4 g/dL (3.2-4.8); Aspartate Aminotransferase 18 U/L (13-40); Bilirubin, Total 0.6 mg/dL (0.2-1.0); Cholesterol 136 mg/dL (< 200); HDL Cholesterol 46 mg/dL (40-59); Total Protein 6.7 g/dL (5.7-8.2)
== END | disposition home or self-care (01) ==
LOC: LAB 06:16
PROVIDERS: ATTEND Internal Medicine
DX: I10 Essential (primary) hypertension (principal); E78.5 Hyperlipidemia, unspecified; K21.9 Gastro-esophageal reflux disease without esophagitis
CPT/HCPCS: 36415; 80053; 80061; 81001; 84439; 84443; 85025; 85652

== ENCOUNTER → 2024-09-24 | Outpatient (CLI) | payer OTHER ==
[2024-09-24 06:51] LABS: Urine Bacteria None Seen /hpf (None Seen)
[2024-09-24 06:56] LABS: Urine Blood Negative /uL (Negative); Urine Clarity Clear (Clear); Urine Color Light-Yellow (Yellow); Urine Mucus FEW (None Seen); Urine Protein, UAD Negative (Negative); Urine Specific Gravity 1.019 (1.001-1.035); Urine Squamous Epithelial Cell FEW /hpf (<5); Urine Urobilinogen Normal (Negative); Urine WBC 2 /HPF (0-5)
[2024-09-24 07:07] LABS: INR 1.05 (0.9-1.15); Prothrombin Time 11.1 sec (9.3-11.8)
[2024-09-24 07:15] LABS: Basophils # (auto) 0.1 10 ^3/uL (0-0.2); Basophils % (auto) 1.2 % (0.0-2.0); Eosinophils # (auto) 0.2 10 ^3/uL (0-0.8); Eosinophils % (auto) 3.6 % (0.0-7.0); Hematocrit 41.3 % (36.0-46.0); Hemoglobin 14.1 g/dL (12.2-16.2); Lymphocytes # (auto) 2.3 10 ^3/uL (0.4-5.4); Lymphocytes % (auto) 43.6 % (10.0-50.0); Mean Corpuscular Hemoglobin 30.6 pg (28.0-32.0); Mean Corpuscular Hgb Conc. 34.2 g/dL (32.0-36.0); Mean Corpuscular Volume 89.4 fL (80.0-100.0); Monocytes # (auto) 0.3 10 ^3/uL (0-1.3); Monocytes % (auto) 5.9 % (0.0-12.0); Neutrophils # (auto) 2.4 10 ^3/uL (1.6-8.6); Neutrophils % (auto) 45.7 % (37.0-80.0); Nucleated Red Blood Cells % 0.1 %; Platelet Count (auto) 235 10^3/uL (140-450); Red Blood Cells 4.62 10^6/uL (4.0-5.20); Red Cell Distribution Width 13.9 % (11.8-14.3); White Blood Cell 5.3 10^3/uL (4.4-10.8)
[2024-09-24 07:48] LABS: Alanine Aminotransferase 20 U/L (7-40); Albumin 4.5 g/dL (3.2-4.8); Anion Gap 8 (5-15); Aspartate Aminotransferase 18 U/L (13-40); Bilirubin, Total 0.5 mg/dL (0.2-1.0); Blood Urea Nitrogen 9 mg/dL (9-23); Calcium 9.9 mg/dL (8.7-10.4); Carbon Dioxide 23 mmol/L (20-31); Cholesterol 128 mg/dL (< 200); Glucose 90 mg/dL (74-106); HDL Cholesterol 47 mg/dL (40-59); LDL Cholesterol 71 mg/dL (< 100); Sodium 141 mmol/L (136-145); Total Protein 6.8 g/dL (5.7-8.2); Triglycerides 70 mg/dL (< 150)
[2024-09-24 07:50] LABS: Alkaline Phosphatase 124 U/L (46-116); Chloride 110 mmol/L (98-107)
[2024-09-24 07:52] LABS: Erythrocyte Sedimentation Rate 10 mm/hr (0-20)
== END | disposition home or self-care (01) ==
LOC: LAB 06:27
PROVIDERS: ATTEND Internal Medicine
DX: I10 Essential (primary) hypertension (principal); E78.00 Pure hypercholesterolemia, unspecified
CPT/HCPCS: 36415; 80053; 80061; 81001; 84439; 84443; 85025; 85610; 85652